=== PATIENT | female | born 1950 | race Caucasian/White ===

== ENCOUNTER → 2016-11-20 | Outpatient (CLI) | payer MEDICARE, OTHER | LOC: MW.CHRC 10:40 | PROVIDERS: ATTEND Family Medicine | DX: G89.4 Chronic pain syndrome (principal); Z53.9 Procedure and treatment not carried out, unspecified reason ==

== ENCOUNTER → 2016-11-28 | Outpatient (CLI) | payer MEDICARE, OTHER ==
[2016-11-28 10:05] LABS: CHLORIDE,CL 106 mmol/L (98-110); SODIUM,NA 140 mmol/L (136-146)
== END ==
LOC: MW.CHRC 09:13
PROVIDERS: ATTEND Family Medicine
DX: Z00.00 Encounter for general adult medical examination without abnormal findings (principal); E78.00 Pure hypercholesterolemia, unspecified; G89.4 Chronic pain syndrome; Z79.899 Other long term (current) drug therapy; K64.9 Unspecified hemorrhoids; J44.9 Chronic obstructive pulmonary disease, unspecified; M06.9 Rheumatoid arthritis, unspecified
CPT/HCPCS: 36415; 80053; 80061; 80305; G0463

== ENCOUNTER 2021-04-20 13:07 | Emergency (ER) | payer MEDICARE ==
[2021-04-20] MEDS ORDERED: Morphine 4 MG/ML Syringe IVPUSH ONE (13:08)
[2021-04-20] MEDS ORDERED: Ondansetron 4 MG/2 ML SDV IVPUSH ONE (13:08)
--- NOTE | 2021-04-20 13:11 | EDM.PDOC ---
ED HPI GENERAL MEDICAL PROBLEM - General Chief Complaint: Trauma Stated Complaint: HIP DISLOCATION EMS ARRIVAL Time Seen by Provider: 04/20/21 13:07 - History of Present Illness INITIAL COMMENTS - FREE TEXT/NARRATIVE: 71-year-old female on Eliquis for history of A. fib presents with concern for left hip dislocation. Patient has a left-sided artificial hip. It was initially replaced many years ago and ended up dislocating 5 times and then being revised 9 years ago. Since that time she has had no trouble with dislocations. Patient was working around the house turned and felt the hip slipped out causing her to fall to the ground. She has severe pain in the left hip does not radiate. She did not strike her head she did not lose consciousness she has no abdominal pain no chest pain and no other extremity pain. The pain worsens with any attempted motion of the left hip joint. She was feeling her normal self prior to the fall. She does have a history of COPD but she is not on home oxygen. General: No fever. Skin: No rash. Eyes: No vision problems. ENT: No sore throat. Neck: No neck stiffness. Respiratory: No shortness of breath. Cardiac: No chest pain. Gastrointestinal: No nausea, vomiting or abdominal pain. Urinary: No dysuria. Musculoskeletal: Per HPI Neurologic: No headache. left hip Pain Score (Numeric/FACES): 8 - Related Data Allergies Allergy/AdvReac Type Severity Reaction Status Date / Time ACEINHIBITORS Allergy Pain Verified 04/20/21 13:26 [BUDDY Inhibitors] black pepper Allergy Swelling Verified 04/20/21 13:26 meperidine HCl [From Demerol] Allergy Vomiting Verified 04/20/21 13:26 Penicillins Allergy Anaphylactic Verified 04/20/21 13:26 Shock Hot peppers Allergy Swelling Uncoded 04/20/21 13:26 Jalapeno Allergy Swelling Uncoded 04/20/21 13:26 Scallops Allergy Swelling Uncoded 04/20/21 13:26 Home Meds: Home Meds Cyanocobalamin (Vitamin B-12) [Cyanocobalamin Injection] 1,000 mcg IM .MONTHLY 12/21/13 [History] buPROPion [Wellbutrin XL] 450 mg PO DAILY 12/21/13 [History] Apixaban [Eliquis] 5 mg PO BID 04/20/21 [History] Fluticasone Propionate [Flovent HFA 110 MCG] 1 puff INH BID 04/20/21 [History] Hydrocodone/Acetaminophen [HYDROcodone-Acetaminophen 7.5-325 MG] 1 each PO Q4H PRN 04/20/21 [History] Pregabalin [Lyrica] 150 mg PO BID PRN 04/20/21 [History] Review of Systems - Review of Systems Review Of Systems: See Below ED EXAM, GENERAL - Physical Exam Exam: See Below Free Text/Narrative:: General Appearance: No acute distress, appears comfortable Skin: No rash HEENT: Normocephalic/atraumatic, sclera anicteric, mucous membranes moist Neck: Normal range of motion Chest and Lungs: Bilateral breath sounds, clear to auscultation Cardiovascular: Regular rate and rhythm, no murmur Abdomen: Soft, non-tender Back: Normal Musculoskeletal: 2+ DP pulses bilaterally left leg is shortened but not significantly rotated no focal tenderness swelling or deformities noted in the bilateral knees or ankles range of motion testing deferred pending x-ray imaging. Neurologic: Awake, alert, no obvious deficits, moving all extremities Psychiatric: Appropriate, cooperative ED TRAUMA PROCEDURES - Additional/Other Procedure(s) Other (Free Text) Procedure(s): Reduction of closed left hip dislocation: Verbal consent was obtained the patient was sedated as outlined below and the left hip was easily relocated using established Bennie technique the left lower extremity was neurovascularly intact both before and after the pr ocedure and the patient tolerated the procedure well the left knee was then placed in a knee immobilizer. Procedural sedation: Verbal consent was obtained the patient was placed on continuous telemetry monitoring as well as continuous CO2 monitoring she was given 0.5 mg/kg of ketamine and propofol which was administered by myself. This led to adequate sedation the hip was then relocated as documented above. Total sedation time was 16 minutes there were no immediate complications. Course - Vital Signs Last Recorded V/S: Last Vital Signs Temp 97.3 F 04/20/21 13:10 Pulse 68 04/20/21 13:10 Resp 18 04/20/21 13:10 BP 118/102 H 04/20/21 13:10 Pulse Ox 96 04/20/21 13:10 - Orders/Labs/Meds Orders: Active Orders 24 hr Category Date Time Status DME for Discharge [COMM] Stat Oth 04/20/21 15:30 Ordered Meds: Medications Discontinued Medications Generic Name Dose Route Start Last Admin Trade Name Erik PRN Reason Stop Dose Admin Ketamine HCl 30 mg 04/20/21 13:43 04/20/21 14:40 Ketamine 500 Mg/10 Ml Mdv IV 04/20/21 13:44 30 mg ONETIME ONE Administration Morphine Sulfate 4 mg 04/20/21 13:08 04/20/21 13:08 Morphine 4 Mg/Ml Syringe IVPUSH 04/20/21 13:09 4 mg ONETIME ONE Administration Ondansetron HCl 4 mg 04/20/21 13:08 04/20/21 13:28 Ondansetron 4 Mg/2 Ml Sdv IVPUSH 04/20/21 13:09 4 mg ONETIME ONE Administration Propofol 30 mg 04/20/21 13:43 04/20/21 14:39 Propofol 200 Mg/20 Ml Sdv IVPUSH 04/20/21 13:44 30 mg ONETIME ONE Administration Propofol 20 mg 04/20/21 14:40 04/20/21 14:42 Propofol 200 Mg/20 Ml Sdv IVPUSH 04/20/21 14:41 20 mg ONETIME ONE Administration Departure - Departure Time of Disposition: 15:29 Disposition: Home, Self-Care 01 Condition: Good Clinical Impression: Hip dislocation, left - Discharge Information *PRESCRIPTION DRUG MONITORING PROGRAM REVIEWED*: Not Applicable *COPY OF PRESCRIPTION DRUG MONITORING REPORT IN PATIENT ZAHRA: Not Applicable Instructions: Hip Dislocation Referrals: Ernst Mueller MD [Primary Care Provider] - Forms: ED Department Discharge Additional Instructions: Please wear the knee immobilizer whenever you are up and around. Please also use the walker. I called and spoke to Dr. Isaias Kidd. You could see him or any of his partners. To make an appointment please contact the [facility] Orthopedic Surgery Department at the information below [address] [place] [address] [address], [address] [phone] The following information is given to patients seen in the emergency department who are being discharged to home. This information is to outline your options for follow-up care. We provide all patients seen in our emergency department with a follow-up referral. The need for follow-up, as well as the timing and circumstances, are variable depending upon the specifics of your emergency department visit. If you don't have a primary care physician on staff, we will provide you with a referral. We always advise you to contact your personal physician following an emergency department visit to inform them of the circumstance of the visit and for follow-up with them and/or the need for any referrals to a consulting specialist. The emergency department will also refer you to a specialist when appropriate. This referral assures that you have the opportunity for follow-up care with a specialist. All of these measure are taken in an effort to provide you with optimal care, which includes your follow-up. Under all circumstances we always encourage you to contact your private physician who remains a resource for coordinating your care. When calling for follow-up care, please make the office aware that this follow-up is from your recent emergency room visit. If for any reason you are refused follow-up, please contact the [facility] Emergency Department at and asked to speak to the emergency department charge nurse. Sepsis Event Note (ED) - Focused Exam Vital Signs: Vital Signs Temp Pulse Resp BP Pulse Ox 04/20/21 13:10 97.3 F 68 18 118/102 H 96 - My Orders Last 24 Hours: My Active Orders 04/20/21 15:30 DME for Discharge [COMM] Stat - Assessment/Plan Last 24 Hours: My Active Orders 04/20/21 15:30 DME for Discharge [COMM] Stat Assessment:: 71-year-old female with likely left-sided artificial hip dislocation. X-ray pending to confirm morphine Zofran for initial symptom control. Patient may require sedation for reduction. I believe you can clinically clear the head spine chest abdomen, nonbony pelvis pelvis and other extremities. She had no symptoms prior to the fall that would suggest a nonmechanical fall. 1345: X-ray does not need confirm superior and slightly posterior left hip dislocation. Patient will need sedation for reduction will use 30 mg of ketamine and 30 mg of propofol for weight-based dose of 0.5 mg/kg. Await add itional staff for sedation. Patient comfortable at this time. Following attempted closed reduction can discuss with orthopedic surgery in [place] regarding disposition and follow-up. 1525: Reduction was without immediate complication and patients sx have resolved. She now feels well and is eager for DC. Will discuss with Orthopedic Surgery in [place] to help ensure follow-up. Patient discussed with Dr. Kidd. The patient can follow-up with him or one of his partners in [place].
[2021-04-20] MEDS ORDERED: Ketamine 500 mg/10 ML MDV IV ONE (13:43)
[2021-04-20] MEDS ORDERED: Propofol 200 MG/20 ML SDV IVPUSH ONE ×2 (13:43→14:40)
--- NOTE | 2021-04-20 13:52 | CR ---
INDICATION: Pain after injury. TECHNIQUE: Two views. IMPRESSION: Complete superior and slight posterior dislocation of the left humeral head prosthesis from the acetabular cup. No fracture is apparent. Dictated by Augustine Mccallum MD @ 04/20/2021 1:50:48 PM (Electronically Signed)
--- NOTE | 2021-04-20 15:18 | CR ---
INDICATION: Assess for reduction of dislocation. COMPARISON: Same date at 13:14. IMPRESSION: Anatomically reduced left hip prosthesis. No fracture appreciated. Dictated by Augustine Mccallum MD @ 04/20/2021 3:16:43 PM (Electronically Signed)
[2021-04-21 09:12] VITALS: BP 121/59; PULSE 65
== END 2021-04-20 15:48 | disposition home or self-care (01) ==
LOC: MW.ED 13:07
DX: T84.021A Dislocation of internal left hip prosthesis, initial encounter (principal); Z88.0 Allergy status to penicillin; Z91.018 Allergy to other foods; Z88.8 Allergy status to other drugs, medicaments and biological substances; Z79.01 Long term (current) use of anticoagulants; Z96.642 Presence of left artificial hip joint
CPT/HCPCS: 27265; 73502; 96374; 96375; 99283; J2270; J2405; J2704

== ENCOUNTER 2022-07-22 09:49 | Inpatient (IN) | payer MEDICARE ==
[2022-07-22] MEDS ORDERED: HYDROmorphone 1 MG/ML Syringe IVPUSH ONE ×2 (09:50→11:26)
[2022-07-22 10:26] LABS: CARBON DIOXIDE,CO2 29.1 mmol/L (21.0-32.0); POTASSIUM,K 4.1 mmol/L (3.5-5.1)
[2022-07-22] MEDS ORDERED: Albuterol/Ipratropium 3.0-0.5 MG/3 ML Neb Soln NEB PRN (15:59)
[2022-07-22] MEDS ORDERED: Ondansetron 4 MG/2 ML SDV IVPUSH PRN (15:59)
[2022-07-22] MEDS ORDERED: Sodium Chloride 0.9% 2.5 ML Syringe FLUSH PRN (15:59)
[2022-07-22] MEDS ORDERED: Magnesium Hydroxide 400 MG/5 ML Susp 30 ML Cup PO PRN (15:59)
[2022-07-22] MEDS ORDERED: Sodium Chloride 0.9% 10 ML Syringe FLUSH PRN (15:59)
[2022-07-22] MEDS ORDERED: HYDROmorphone 1 MG/ML Syringe IVPUSH PRN (15:59)
[2022-07-22] MEDS ORDERED: Acetaminophen 325 MG Tab PO PRN (15:59)
[2022-07-22] MEDS ORDERED: Polyethylene Glycol 3350 Powder 17 GM Packet PO PRN (15:59)
[2022-07-22] MEDS ORDERED: Acetaminophen/HYDROcodone 325-10 MG Tab PO PRN (16:03)
[2022-07-22] MEDS ORDERED: Lactated Ringers 1,000 ML IV ONE (16:30)
[2022-07-22] MEDS: atorvaSTATin 10 MG Tab PO SCH (20:39)
[2022-07-22] MEDS: Pregabalin 50 MG Cap PO SCH (20:39)
[2022-07-22] MEDS: Docusate Sodium 100 MG Cap PO SCH (20:40)
[2022-07-22] MEDS: Fluticasone/Salmeterol 250-50 MCG Inhalation Powder 14/Diskus INH SCH (20:40)
[2022-07-23 08:46] LABS: CARBON DIOXIDE,CO2 26.2 mmol/L (21.0-32.0); POTASSIUM,K 3.7 mmol/L (3.5-5.1)
[2022-07-23] MEDS: Fluticasone/Salmeterol 250-50 MCG Inhalation Powder 14/Diskus INH SCH ×2 (09:54→21:35)
[2022-07-23] MEDS: buPROPion 150 MG Tab.ER PO SCH (09:54)
[2022-07-23] MEDS: DULoxetine 30 MG Cap PO SCH (09:55)
[2022-07-23] MEDS: Docusate Sodium 100 MG Cap PO SCH ×2 (09:55→21:33)
[2022-07-23] MEDS: Pregabalin 50 MG Cap PO SCH ×2 (09:55→21:33)
[2022-07-23] MEDS: HYDROmorphone 1 MG/ML Syringe IVPUSH PRN ×2 (11:11→18:38)
[2022-07-23] MEDS: Acetaminophen/HYDROcodone 325-10 MG Tab PO PRN ×2 (13:43→21:33)
[2022-07-23] MEDS: atorvaSTATin 10 MG Tab PO SCH (21:33)
[2022-07-24] MEDS: Acetaminophen/HYDROcodone 325-10 MG Tab PO PRN ×2 (06:08→11:01)
[2022-07-24] MEDS: Docusate Sodium 100 MG Cap PO SCH ×2 (08:14→20:42)
[2022-07-24] MEDS: buPROPion 150 MG Tab.ER PO SCH (08:14)
[2022-07-24] MEDS: Pregabalin 50 MG Cap PO SCH ×2 (08:14→20:42)
[2022-07-24] MEDS: DULoxetine 30 MG Cap PO SCH (08:14)
[2022-07-24] MEDS: Apixaban 5 MG Tab PO SCH ×2 (08:19→20:42)
[2022-07-24] MEDS: HYDROmorphone 1 MG/ML Syringe IVPUSH PRN ×3 (08:19→20:46)
[2022-07-24 08:22] LABS: CARBON DIOXIDE,CO2 27.2 mmol/L (21.0-32.0); POTASSIUM,K 3.7 mmol/L (3.5-5.1)
[2022-07-24] MEDS: Fluticasone/Salmeterol 250-50 MCG Inhalation Powder 14/Diskus INH SCH ×2 (09:00→20:41)
[2022-07-24] MEDS: atorvaSTATin 10 MG Tab PO SCH (20:42)
[2022-07-25 06:13] LABS: CARBON DIOXIDE,CO2 27.4 mmol/L (21.0-32.0); POTASSIUM,K 3.9 mmol/L (3.5-5.1)
[2022-07-25] MEDS: HYDROmorphone 1 MG/ML Syringe IVPUSH PRN ×2 (06:18→14:59)
[2022-07-25] MEDS: Apixaban 5 MG Tab PO SCH ×2 (08:32→20:31)
[2022-07-25] MEDS: Docusate Sodium 100 MG Cap PO SCH ×2 (08:32→20:31)
[2022-07-25] MEDS: buPROPion 150 MG Tab.ER PO SCH (08:32)
[2022-07-25] MEDS: DULoxetine 30 MG Cap PO SCH (08:32)
[2022-07-25] MEDS: Pregabalin 50 MG Cap PO SCH ×2 (08:32→20:42)
[2022-07-25] MEDS: Fluticasone/Salmeterol 250-50 MCG Inhalation Powder 14/Diskus INH SCH ×2 (08:39→20:30)
[2022-07-25] MEDS: Acetaminophen/HYDROcodone 325-10 MG Tab PO PRN ×3 (11:12→20:32)
[2022-07-25] MEDS: atorvaSTATin 10 MG Tab PO SCH (20:31)
[2022-07-26 06:48] LABS: CARBON DIOXIDE,CO2 29.6 mmol/L (21.0-32.0)
[2022-07-26] MEDS: Acetaminophen/HYDROcodone 325-10 MG Tab PO PRN ×2 (07:26→16:44)
[2022-07-26] MEDS: DULoxetine 30 MG Cap PO SCH (09:04)
[2022-07-26] MEDS: Docusate Sodium 100 MG Cap PO SCH ×2 (09:04→20:06)
[2022-07-26] MEDS: Apixaban 5 MG Tab PO SCH ×2 (09:04→20:07)
[2022-07-26] MEDS: buPROPion 150 MG Tab.ER PO SCH (09:04)
[2022-07-26] MEDS: Pregabalin 50 MG Cap PO SCH ×2 (09:05→20:08)
[2022-07-26] MEDS: Fluticasone/Salmeterol 250-50 MCG Inhalation Powder 14/Diskus INH SCH ×2 (09:06→20:07)
[2022-07-26] MEDS: HYDROmorphone 1 MG/ML Syringe IVPUSH PRN ×2 (13:14→19:26)
[2022-07-26] MEDS: atorvaSTATin 10 MG Tab PO SCH (20:07)
[2022-07-27] MEDS: Fluticasone/Salmeterol 250-50 MCG Inhalation Powder 14/Diskus INH SCH ×2 (09:17→20:48)
[2022-07-27] MEDS: Acetaminophen/HYDROcodone 325-10 MG Tab PO PRN ×2 (09:23→14:29)
[2022-07-27] MEDS: Apixaban 5 MG Tab PO SCH ×2 (09:26→20:38)
[2022-07-27] MEDS: buPROPion 150 MG Tab.ER PO SCH (09:27)
[2022-07-27] MEDS: DULoxetine 30 MG Cap PO SCH (09:27)
[2022-07-27] MEDS: Docusate Sodium 100 MG Cap PO SCH ×2 (09:28→20:38)
[2022-07-27] MEDS: Pregabalin 50 MG Cap PO SCH ×2 (09:29→20:40)
[2022-07-27] MEDS: HYDROmorphone 1 MG/ML Syringe IVPUSH PRN ×3 (10:44→20:38)
[2022-07-27] MEDS: atorvaSTATin 10 MG Tab PO SCH (20:37)
[2022-07-28] MEDS: Apixaban 5 MG Tab PO SCH ×2 (08:40→20:42)
[2022-07-28] MEDS: DULoxetine 30 MG Cap PO SCH (08:41)
[2022-07-28] MEDS: Docusate Sodium 100 MG Cap PO SCH ×2 (08:41→20:42)
[2022-07-28] MEDS: buPROPion 150 MG Tab.ER PO SCH (08:42)
[2022-07-28] MEDS: HYDROmorphone 1 MG/ML Syringe IVPUSH PRN ×3 (08:42→20:45)
[2022-07-28] MEDS: Pregabalin 50 MG Cap PO SCH ×2 (08:46→20:42)
[2022-07-28] MEDS: Fluticasone/Salmeterol 250-50 MCG Inhalation Powder 14/Diskus INH SCH ×2 (08:46→20:43)
[2022-07-28] MEDS: Acetaminophen/HYDROcodone 325-10 MG Tab PO PRN ×2 (13:25→22:53)
[2022-07-28] MEDS: atorvaSTATin 10 MG Tab PO SCH (20:42)
[2022-07-29] MEDS: Fluticasone/Salmeterol 250-50 MCG Inhalation Powder 14/Diskus INH SCH ×2 (08:16→21:33)
[2022-07-29] MEDS: Apixaban 5 MG Tab PO SCH ×2 (08:16→20:10)
[2022-07-29] MEDS: DULoxetine 30 MG Cap PO SCH (08:17)
[2022-07-29] MEDS: buPROPion 150 MG Tab.ER PO SCH (08:17)
[2022-07-29] MEDS: Docusate Sodium 100 MG Cap PO SCH ×2 (08:17→20:11)
[2022-07-29] MEDS: Pregabalin 50 MG Cap PO SCH ×2 (08:17→20:10)
[2022-07-29] MEDS: Acetaminophen/HYDROcodone 325-10 MG Tab PO PRN (10:57)
[2022-07-29] MEDS: Acetaminophen 325 MG Tab PO SCH ×3 (16:34→23:46)
[2022-07-29] MEDS: oxyCODONE 5 MG Tab PO PRN (18:01)
[2022-07-29] MEDS: atorvaSTATin 10 MG Tab PO SCH (20:10)
[2022-07-30] MEDS: Acetaminophen 325 MG Tab PO SCH ×5 (04:02→20:15)
[2022-07-30 07:46] LABS: CARBON DIOXIDE,CO2 25.4 mmol/L (21.0-32.0); POTASSIUM,K 3.7 mmol/L (3.5-5.1)
[2022-07-30] MEDS: buPROPion 150 MG Tab.ER PO SCH (08:46)
[2022-07-30] MEDS: DULoxetine 30 MG Cap PO SCH (08:46)
[2022-07-30] MEDS: Apixaban 5 MG Tab PO SCH ×2 (08:46→20:17)
[2022-07-30] MEDS: oxyCODONE 5 MG Tab PO PRN ×3 (08:46→20:16)
[2022-07-30] MEDS: Pregabalin 50 MG Cap PO SCH ×2 (08:46→20:17)
[2022-07-30] MEDS: Docusate Sodium 100 MG Cap PO SCH ×3 (08:47→20:19)
[2022-07-30] MEDS: Fluticasone/Salmeterol 250-50 MCG Inhalation Powder 14/Diskus INH SCH ×2 (09:00→20:18)
[2022-07-30] MEDS: atorvaSTATin 10 MG Tab PO SCH (20:17)
[2022-07-31] MEDS: Acetaminophen 325 MG Tab PO SCH ×6 (04:30→20:00)
[2022-07-31] MEDS: Apixaban 5 MG Tab PO SCH ×2 (08:04→20:01)
[2022-07-31] MEDS: DULoxetine 30 MG Cap PO SCH (08:04)
[2022-07-31] MEDS: Pregabalin 50 MG Cap PO SCH ×2 (08:04→20:01)
[2022-07-31] MEDS: buPROPion 150 MG Tab.ER PO SCH (08:05)
[2022-07-31] MEDS: Docusate Sodium 100 MG Cap PO SCH ×2 (08:06→20:02)
[2022-07-31] MEDS: Fluticasone/Salmeterol 250-50 MCG Inhalation Powder 14/Diskus INH SCH ×2 (08:09→20:05)
[2022-07-31] MEDS: oxyCODONE 5 MG Tab PO PRN ×3 (10:59→20:47)
[2022-07-31] MEDS: atorvaSTATin 10 MG Tab PO SCH (20:01)
[2022-08-01] MEDS: Acetaminophen 325 MG Tab PO SCH ×6 (00:03→20:16)
[2022-08-01] MEDS: Apixaban 5 MG Tab PO SCH ×2 (08:12→20:16)
[2022-08-01] MEDS: Pregabalin 50 MG Cap PO SCH ×2 (08:13→20:17)
[2022-08-01] MEDS: buPROPion 150 MG Tab.ER PO SCH (08:13)
[2022-08-01] MEDS: Docusate Sodium 100 MG Cap PO SCH ×2 (08:14→20:20)
[2022-08-01] MEDS: DULoxetine 30 MG Cap PO SCH (08:14)
[2022-08-01] MEDS: Fluticasone/Salmeterol 250-50 MCG Inhalation Powder 14/Diskus INH SCH ×2 (08:15→20:15)
[2022-08-01] MEDS: oxyCODONE 5 MG Tab PO PRN ×3 (10:10→22:52)
[2022-08-01] MEDS: atorvaSTATin 10 MG Tab PO SCH (20:18)
[2022-08-02] MEDS: Acetaminophen 325 MG Tab PO SCH ×6 (00:03→19:57)
[2022-08-02] MEDS: oxyCODONE 5 MG Tab PO PRN ×3 (08:37→21:16)
[2022-08-02] MEDS: Pregabalin 50 MG Cap PO SCH ×2 (08:38→21:10)
[2022-08-02] MEDS: buPROPion 150 MG Tab.ER PO SCH (08:38)
[2022-08-02] MEDS: DULoxetine 30 MG Cap PO SCH (08:38)
[2022-08-02] MEDS: Apixaban 5 MG Tab PO SCH ×2 (08:39→21:09)
[2022-08-02] MEDS: Docusate Sodium 100 MG Cap PO SCH (11:19)
[2022-08-02] MEDS: Fluticasone/Salmeterol 250-50 MCG Inhalation Powder 14/Diskus INH SCH ×2 (11:50→21:17)
[2022-08-02] MEDS: atorvaSTATin 10 MG Tab PO SCH (21:10)
[2022-08-03] MEDS: Acetaminophen 325 MG Tab PO SCH ×6 (01:01→20:15)
[2022-08-03] MEDS: Docusate Sodium 100 MG Cap PO SCH ×3 (02:58→20:20)
[2022-08-03] MEDS: oxyCODONE 5 MG Tab PO PRN ×2 (03:29→16:09)
[2022-08-03] MEDS: Fluticasone/Salmeterol 250-50 MCG Inhalation Powder 14/Diskus INH SCH ×2 (08:45→20:17)
[2022-08-03] MEDS: Apixaban 5 MG Tab PO SCH ×2 (08:46→20:22)
[2022-08-03] MEDS: Pregabalin 50 MG Cap PO SCH ×2 (08:46→20:21)
[2022-08-03] MEDS: DULoxetine 30 MG Cap PO SCH (08:46)
[2022-08-03] MEDS: buPROPion 150 MG Tab.ER PO SCH (08:47)
[2022-08-03] MEDS: atorvaSTATin 10 MG Tab PO SCH (20:20)
[2022-08-04] MEDS: Acetaminophen 325 MG Tab PO SCH ×7 (00:27→19:58)
[2022-08-04 06:53] LABS: POTASSIUM,K 3.7 mmol/L (3.5-5.1)
[2022-08-04] MEDS: Docusate Sodium 100 MG Cap PO SCH ×2 (08:14→21:56)
[2022-08-04] MEDS: DULoxetine 30 MG Cap PO SCH (08:14)
[2022-08-04] MEDS: Pregabalin 50 MG Cap PO SCH ×2 (08:14→19:59)
[2022-08-04] MEDS: Apixaban 5 MG Tab PO SCH ×2 (08:14→19:59)
[2022-08-04] MEDS: buPROPion 150 MG Tab.ER PO SCH (08:14)
[2022-08-04] MEDS: Fluticasone/Salmeterol 250-50 MCG Inhalation Powder 14/Diskus INH SCH ×2 (08:15→20:02)
[2022-08-04] MEDS: oxyCODONE 5 MG Tab PO PRN ×3 (08:23→20:47)
[2022-08-04] MEDS: atorvaSTATin 10 MG Tab PO SCH (19:59)
[2022-08-05] MEDS: Acetaminophen 325 MG Tab PO SCH ×7 (01:02→23:28)
[2022-08-05] MEDS: oxyCODONE 5 MG Tab PO PRN ×4 (03:27→22:42)
[2022-08-05] MEDS: Pregabalin 50 MG Cap PO SCH ×2 (09:48→20:10)
[2022-08-05] MEDS: buPROPion 150 MG Tab.ER PO SCH (09:48)
[2022-08-05] MEDS: Fluticasone/Salmeterol 250-50 MCG Inhalation Powder 14/Diskus INH SCH ×2 (09:48→20:12)
[2022-08-05] MEDS: DULoxetine 30 MG Cap PO SCH (09:48)
[2022-08-05] MEDS: Apixaban 5 MG Tab PO SCH ×2 (09:48→20:10)
[2022-08-05] MEDS: Docusate Sodium 100 MG Cap PO SCH ×2 (09:52→20:11)
[2022-08-05 11:45] LABS: CORONAVIRUS COVID-19 NAA NEGATIVE (NEGATIVE); INFLUENZA A NAA POSITIVE (NEGATIVE); INFLUENZA B NAA NEGATIVE (NEGATIVE); RESPIRATORY SYNCYTIAL VIR NAA NEGATIVE (NEGATIVE)
[2022-08-05] MEDS: Oseltamivir 75 MG Cap PO SCH ×2 (12:19→20:10)
[2022-08-05] MEDS: atorvaSTATin 10 MG Tab PO SCH (20:10)
[2022-08-06] MEDS: Acetaminophen 325 MG Tab PO SCH ×6 (04:16→23:06)
[2022-08-06] MEDS: Docusate Sodium 100 MG Cap PO SCH ×2 (07:59→20:25)
[2022-08-06] MEDS: DULoxetine 30 MG Cap PO SCH (08:00)
[2022-08-06] MEDS: buPROPion 150 MG Tab.ER PO SCH (08:00)
[2022-08-06] MEDS: Apixaban 5 MG Tab PO SCH ×2 (08:00→20:13)
[2022-08-06] MEDS: Oseltamivir 75 MG Cap PO SCH ×2 (08:00→20:13)
[2022-08-06] MEDS: Pregabalin 50 MG Cap PO SCH ×2 (08:00→20:13)
[2022-08-06 08:55] LABS: CARBON DIOXIDE,CO2 26.5 mmol/L (21.0-32.0)
[2022-08-06] MEDS: Fluticasone/Salmeterol 250-50 MCG Inhalation Powder 14/Diskus INH SCH ×2 (09:48→20:13)
[2022-08-06] MEDS: Benzocaine/Cetylpyridinium/Menthol Lozenge MUCMEM PRN (09:48)
[2022-08-06] MEDS: oxyCODONE 5 MG Tab PO PRN (15:22)
[2022-08-06] MEDS: atorvaSTATin 10 MG Tab PO SCH (20:13)
[2022-08-06] MEDS: guaiFENesin/Dextromethorphan 100-10 MG/5 ML Soln 10 ML Cup PO PRN (20:13)
[2022-08-07] MEDS: Acetaminophen 325 MG Tab PO SCH ×5 (03:27→21:01)
[2022-08-07] MEDS: Benzocaine/Cetylpyridinium/Menthol Lozenge MUCMEM PRN (03:42)
[2022-08-07] MEDS: oxyCODONE 5 MG Tab PO PRN ×2 (09:36→15:37)
[2022-08-07] MEDS: Pregabalin 50 MG Cap PO SCH ×2 (09:36→21:01)
[2022-08-07] MEDS: guaiFENesin/Dextromethorphan 100-10 MG/5 ML Soln 10 ML Cup PO PRN ×2 (09:36→15:37)
[2022-08-07] MEDS: DULoxetine 30 MG Cap PO SCH (09:36)
[2022-08-07] MEDS: Oseltamivir 75 MG Cap PO SCH ×2 (09:36→21:02)
[2022-08-07] MEDS: buPROPion 150 MG Tab.ER PO SCH (09:36)
[2022-08-07] MEDS: Apixaban 5 MG Tab PO SCH ×2 (09:37→21:01)
[2022-08-07] MEDS: Fluticasone/Salmeterol 250-50 MCG Inhalation Powder 14/Diskus INH SCH ×2 (09:37→21:00)
[2022-08-07] MEDS: Docusate Sodium 100 MG Cap PO SCH ×2 (09:38→21:02)
[2022-08-07] MEDS: atorvaSTATin 10 MG Tab PO SCH (21:01)
[2022-08-08] MEDS: Acetaminophen 325 MG Tab PO SCH ×3 (00:52→08:34)
[2022-08-08] MEDS: Benzocaine/Cetylpyridinium/Menthol Lozenge MUCMEM PRN ×2 (02:17→20:13)
[2022-08-08] MEDS: guaiFENesin/Dextromethorphan 100-10 MG/5 ML Soln 10 ML Cup PO PRN ×2 (02:17→20:13)
[2022-08-08] MEDS: DULoxetine 30 MG Cap PO SCH (08:34)
[2022-08-08] MEDS: Pregabalin 50 MG Cap PO SCH ×2 (08:34→20:03)
[2022-08-08] MEDS: Docusate Sodium 100 MG Cap PO SCH ×2 (08:34→21:06)
[2022-08-08] MEDS: Fluticasone/Salmeterol 250-50 MCG Inhalation Powder 14/Diskus INH SCH ×2 (08:34→21:09)
[2022-08-08] MEDS: Apixaban 5 MG Tab PO SCH ×2 (08:34→20:03)
[2022-08-08] MEDS: buPROPion 150 MG Tab.ER PO SCH (08:34)
[2022-08-08] MEDS ORDERED: Acetaminophen 500 MG Tab PO PRN (09:53)
[2022-08-08] MEDS: Oseltamivir 75 MG Cap PO SCH ×2 (10:26→20:03)
[2022-08-08] MEDS: oxyCODONE 5 MG Tab PO PRN ×2 (13:54→20:02)
[2022-08-08] MEDS: atorvaSTATin 10 MG Tab PO SCH (20:03)
[2022-08-08] MEDS: Acetaminophen 500 MG Tab PO SCH (20:04)
[2022-08-09] MEDS: Fluticasone/Salmeterol 250-50 MCG Inhalation Powder 14/Diskus INH SCH ×2 (09:37→20:29)
[2022-08-09] MEDS: buPROPion 150 MG Tab.ER PO SCH (09:38)
[2022-08-09] MEDS: Acetaminophen 500 MG Tab PO SCH ×2 (09:38→20:30)
[2022-08-09] MEDS: DULoxetine 30 MG Cap PO SCH (09:39)
[2022-08-09] MEDS: Apixaban 5 MG Tab PO SCH ×2 (09:39→20:30)
[2022-08-09] MEDS: Pregabalin 50 MG Cap PO SCH ×2 (09:39→20:30)
[2022-08-09] MEDS: Oseltamivir 75 MG Cap PO SCH ×2 (09:39→20:30)
[2022-08-09] MEDS: Docusate Sodium 100 MG Cap PO SCH ×2 (09:40→20:58)
[2022-08-09] MEDS: guaiFENesin/Dextromethorphan 100-10 MG/5 ML Soln 10 ML Cup PO PRN ×2 (12:50→20:29)
[2022-08-09] MEDS: oxyCODONE 5 MG Tab PO PRN (20:29)
[2022-08-09] MEDS: Benzocaine/Cetylpyridinium/Menthol Lozenge MUCMEM PRN (20:30)
[2022-08-09] MEDS: atorvaSTATin 10 MG Tab PO SCH (20:30)
[2022-08-10] MEDS: buPROPion 150 MG Tab.ER PO SCH (09:41)
[2022-08-10] MEDS: DULoxetine 30 MG Cap PO SCH (09:41)
[2022-08-10] MEDS: guaiFENesin/Dextromethorphan 100-10 MG/5 ML Soln 10 ML Cup PO PRN ×2 (09:41→21:07)
[2022-08-10] MEDS: Oseltamivir 75 MG Cap PO SCH (09:41)
[2022-08-10] MEDS: Apixaban 5 MG Tab PO SCH ×2 (09:41→21:07)
[2022-08-10] MEDS: Docusate Sodium 100 MG Cap PO SCH ×2 (09:41→21:08)
[2022-08-10] MEDS: Pregabalin 50 MG Cap PO SCH ×2 (09:41→21:07)
[2022-08-10] MEDS: Fluticasone/Salmeterol 250-50 MCG Inhalation Powder 14/Diskus INH SCH ×2 (09:42→21:08)
[2022-08-10] MEDS: Acetaminophen 500 MG Tab PO SCH ×2 (09:44→21:07)
[2022-08-10] MEDS: Benzocaine/Cetylpyridinium/Menthol Lozenge MUCMEM PRN (21:06)
[2022-08-10] MEDS: atorvaSTATin 10 MG Tab PO SCH (21:07)
[2022-08-10] MEDS: oxyCODONE 5 MG Tab PO PRN (21:07)
[2022-08-11] MEDS: Fluticasone/Salmeterol 250-50 MCG Inhalation Powder 14/Diskus INH SCH ×2 (09:16→21:15)
[2022-08-11] MEDS: DULoxetine 30 MG Cap PO SCH (09:24)
[2022-08-11] MEDS: Acetaminophen 500 MG Tab PO SCH ×2 (09:24→21:15)
[2022-08-11] MEDS: buPROPion 150 MG Tab.ER PO SCH (09:25)
[2022-08-11] MEDS: Docusate Sodium 100 MG Cap PO SCH ×2 (09:25→22:46)
[2022-08-11] MEDS: Apixaban 5 MG Tab PO SCH ×2 (09:25→21:15)
[2022-08-11] MEDS: Pregabalin 50 MG Cap PO SCH ×2 (09:25→21:15)
[2022-08-11] MEDS: oxyCODONE 5 MG Tab PO PRN (16:27)
[2022-08-11] MEDS: guaiFENesin/Dextromethorphan 100-10 MG/5 ML Soln 10 ML Cup PO PRN (21:15)
[2022-08-11] MEDS: Benzocaine/Cetylpyridinium/Menthol Lozenge MUCMEM PRN (21:15)
[2022-08-11] MEDS: atorvaSTATin 10 MG Tab PO SCH (21:15)
[2022-08-12] MEDS: DULoxetine 30 MG Cap PO SCH (08:57)
[2022-08-12] MEDS: Docusate Sodium 100 MG Cap PO SCH ×2 (08:57→20:29)
[2022-08-12] MEDS: Pregabalin 50 MG Cap PO SCH ×2 (08:58→20:30)
[2022-08-12] MEDS: buPROPion 150 MG Tab.ER PO SCH (08:58)
[2022-08-12] MEDS: Apixaban 5 MG Tab PO SCH ×2 (08:58→20:29)
[2022-08-12] MEDS: Acetaminophen 500 MG Tab PO SCH ×2 (08:58→20:29)
[2022-08-12] MEDS: Fluticasone/Salmeterol 250-50 MCG Inhalation Powder 14/Diskus INH SCH ×2 (08:59→20:30)
[2022-08-12] MEDS: atorvaSTATin 10 MG Tab PO SCH (20:29)
[2022-08-13] MEDS: Apixaban 5 MG Tab PO SCH ×2 (08:41→21:19)
[2022-08-13] MEDS: Acetaminophen 500 MG Tab PO SCH ×2 (08:41→21:19)
[2022-08-13] MEDS: DULoxetine 30 MG Cap PO SCH (08:41)
[2022-08-13] MEDS: Pregabalin 50 MG Cap PO SCH ×2 (08:42→21:19)
[2022-08-13] MEDS: buPROPion 150 MG Tab.ER PO SCH (08:42)
[2022-08-13] MEDS: Docusate Sodium 100 MG Cap PO SCH ×2 (08:42→21:19)
[2022-08-13] MEDS: Fluticasone/Salmeterol 250-50 MCG Inhalation Powder 14/Diskus INH SCH ×2 (08:43→21:20)
[2022-08-13] MEDS: atorvaSTATin 10 MG Tab PO SCH (21:19)
[2022-08-13] MEDS: oxyCODONE 5 MG Tab PO PRN (21:26)
[2022-08-14 07:51] VITALS: BP 117/63; PULSE 74
[2022-08-14] MEDS: Pregabalin 50 MG Cap PO SCH (08:00)
[2022-08-14] MEDS: buPROPion 150 MG Tab.ER PO SCH (08:00)
[2022-08-14] MEDS: Acetaminophen 500 MG Tab PO SCH (08:00)
[2022-08-14] MEDS: Fluticasone/Salmeterol 250-50 MCG Inhalation Powder 14/Diskus INH SCH (08:01)
[2022-08-14] MEDS: Docusate Sodium 100 MG Cap PO SCH (08:01)
[2022-08-14] MEDS: DULoxetine 30 MG Cap PO SCH (08:01)
[2022-08-14] MEDS: Apixaban 5 MG Tab PO SCH (08:01)
== END 2022-08-14 08:55 | DRG 536 ==
LOC: MW.ED 09:49 → MW.MS 14:01
PROVIDERS: ADMIT Internal Medicine; ATTEND Internal Medicine
DX: S72.002A Fracture of unspecified part of neck of left femur, initial encounter for closed fracture (principal); S72.92XA Unspecified fracture of left femur, initial encounter for closed fracture; M97.02XA Periprosthetic fracture around internal prosthetic left hip joint, initial encounter; S70.12XA Contusion of left thigh, initial encounter; J10.1 Influenza due to other identified influenza virus with other respiratory manifestations; I48.0 Paroxysmal atrial fibrillation; G89.29 Other chronic pain; F11.90 Opioid use, unspecified, uncomplicated; Z20.822 Contact with and (suspected) exposure to COVID-19; J44.9 Chronic obstructive pulmonary disease, unspecified; Z88.0 Allergy status to penicillin; I48.91 Unspecified atrial fibrillation; Z88.8 Allergy status to other drugs, medicaments and biological substances; Z79.899 Other long term (current) drug therapy; I45.10 Unspecified right bundle-branch block; M06.9 Rheumatoid arthritis, unspecified; Z79.01 Long term (current) use of anticoagulants; Z79.891 Long term (current) use of opiate analgesic; Z96.642 Presence of left artificial hip joint; W19.XXXA Unspecified fall, initial encounter
CPT/HCPCS: 0241U; 36415; 70450; 71045; 72125; 72131; 72192; 73110; 73502; 73552; 80048; 80053; 83735; 84100; 84484; 85025; 93005; 94640; 96374; 96376; 97110; 97163; 97530; 99285; 93010; 99221; 99231; 99232; 99238; 99284; A9270-GY; J1170; J7120; J7620-GY; U0002

== ENCOUNTER 2022-09-23 10:00 | Emergency (ER) | payer MEDICARE ==
[2022-09-23 11:10] LABS: BLOOD UREA NITROGEN,BUN 12 mg/dL (7.0-18.0); CARBON DIOXIDE,CO2 27.5 mmol/L (21.0-32.0); CHLORIDE,CL 105 mmol/L (98-107); GLUCOSE RANDOM 75 mg/dL (74-106); POTASSIUM,K 4.3 mmol/L (3.5-5.1); SODIUM,NA 140 mmol/L (136-145)
[2022-09-23] MEDS ORDERED: Morphine 4 MG/ML Syringe IVPUSH ONE (11:11)
[2022-09-23] MEDS ORDERED: Ondansetron 4 MG/2 ML SDV IVPUSH ONE (11:11)
[2022-09-23 11:15] LABS: CORONAVIRUS COVID-19 NAA NEGATIVE (NEGATIVE); INFLUENZA A NAA NEGATIVE (NEGATIVE); INFLUENZA B NAA NEGATIVE (NEGATIVE)
[2022-09-23 11:16] LABS: ESTIMATED GFR 94 mL/min (>60)
[2022-09-23] MEDS ORDERED: Lidocaine 1% 5 ML VIAL ONE (13:37)
[2022-09-23] MEDS ORDERED: Propofol 200 MG/20 ML SDV ONE (13:37)
[2022-09-23 16:14] VITALS: BP 117/65; PULSE 70
== END 2022-09-23 16:13 | disposition home or self-care (01) ==
LOC: MW.ED 10:00
DX: S73.005A Unspecified dislocation of left hip, initial encounter (principal); I48.91 Unspecified atrial fibrillation; J44.9 Chronic obstructive pulmonary disease, unspecified; Z79.01 Long term (current) use of anticoagulants; Z88.0 Allergy status to penicillin; Z91.048 Other nonmedicinal substance allergy status; Z88.5 Allergy status to narcotic agent; Z79.899 Other long term (current) drug therapy; Z20.822 Contact with and (suspected) exposure to COVID-19
CPT/HCPCS: 0240U; 27250; 36415; 73501; 73502; 80053; 85025; 96374; 96375; 99284; J2270; J2405; J2704; J3490

== ENCOUNTER 2022-10-12 11:35 | Emergency (ER) | payer MEDICARE ==
[2022-10-12] MEDS ORDERED: HYDROmorphone 1 MG/ML Syringe IVPUSH ONE (11:57)
[2022-10-12] MEDS ORDERED: Ondansetron 4 MG/2 ML SDV IVPUSH ONE (11:57)
[2022-10-12 14:28] VITALS: BP 113/58; PULSE 69
== END 2022-10-12 15:25 | disposition home or self-care (01) ==
LOC: MW.ED 11:35
DX: S70.02XA Contusion of left hip, initial encounter (principal); I48.91 Unspecified atrial fibrillation; J44.9 Chronic obstructive pulmonary disease, unspecified; Z96.642 Presence of left artificial hip joint; Z88.8 Allergy status to other drugs, medicaments and biological substances; Z88.5 Allergy status to narcotic agent; Z88.0 Allergy status to penicillin; Z91.018 Allergy to other foods; Z79.01 Long term (current) use of anticoagulants; Z79.899 Other long term (current) drug therapy
CPT/HCPCS: 72192; 73503; 96374; 96375; 99284; J1170; J2405

== ENCOUNTER 2022-10-15 10:06 | Emergency (ER) | payer MEDICARE ==
[2022-10-15] MEDS ORDERED: Propofol 200 MG/20 ML SDV IVPUSH ONE (11:00)
[2022-10-15] MEDS ORDERED: Sodium Chloride 0.9% 1,000 ML IV ONE (11:10)
[2022-10-15 11:22] LABS: CORONAVIRUS COVID-19 NAA NEGATIVE (NEGATIVE); INFLUENZA A NAA NEGATIVE (NEGATIVE); INFLUENZA B NAA NEGATIVE (NEGATIVE)
[2022-10-15 19:52] VITALS: BP 156/87; PULSE 87
== END 2022-10-15 13:52 | disposition home or self-care (01) ==
LOC: MW.ED 10:06
DX: T84.021A Dislocation of internal left hip prosthesis, initial encounter (principal); J44.9 Chronic obstructive pulmonary disease, unspecified; I48.91 Unspecified atrial fibrillation; Z79.01 Long term (current) use of anticoagulants; Z88.5 Allergy status to narcotic agent; Z88.8 Allergy status to other drugs, medicaments and biological substances; Z88.0 Allergy status to penicillin; Z91.048 Other nonmedicinal substance allergy status; Z79.899 Other long term (current) drug therapy; Z20.822 Contact with and (suspected) exposure to COVID-19
CPT/HCPCS: 0240U; 27250; 73501; 73502; 93005; 96360; 96361; 99284; J2704; J7030; 93010

== ENCOUNTER 2023-01-07 13:24 | Emergency (ER) | payer MEDICARE ==
[2023-01-07] MEDS ORDERED: Sodium Chloride 0.9% 1,000 ML IV STA (14:16)
[2023-01-07] MEDS ORDERED: Propofol 200 MG/20 ML SDV IVPUSH STA (14:16)
[2023-01-07 19:22] VITALS: BP 117/78; PULSE 67
== END 2023-01-07 16:40 ==
LOC: MW.ED 13:24
DX: T84.020A Dislocation of internal right hip prosthesis, initial encounter (principal); I48.91 Unspecified atrial fibrillation; J44.9 Chronic obstructive pulmonary disease, unspecified; Z88.5 Allergy status to narcotic agent; Z88.0 Allergy status to penicillin; Z91.048 Other nonmedicinal substance allergy status; Z91.018 Allergy to other foods; Z79.01 Long term (current) use of anticoagulants
CPT/HCPCS: 27266; 73502; 96360; 99152; 99285; J2704; J7030; 99283

== ENCOUNTER 2023-01-07 19:23 | Emergency (ER) | payer MEDICARE | END 2023-01-07 20:30 | disposition left against medical advice (07) | LOC: MW.ED 19:23 | DX: Z53.21 Procedure and treatment not carried out due to patient leaving prior to being seen by health care provider (principal) ==

== ENCOUNTER 2023-02-09 21:06 | Emergency (ER) | payer MEDICARE ==
[2023-02-09] MEDS ORDERED: Sodium Chloride 0.9% 1,000 ML IV ONE (22:00)
[2023-02-09] MEDS ORDERED: Propofol 200 MG/20 ML SDV IVPUSH ONE (22:00)
[2023-02-09 23:58] VITALS: BP 118/61; PULSE 72
== END 2023-02-09 23:57 | disposition home or self-care (01) ==
LOC: MW.ED 21:06
DX: T84.021A Dislocation of internal left hip prosthesis, initial encounter (principal); I48.91 Unspecified atrial fibrillation; J44.9 Chronic obstructive pulmonary disease, unspecified; Z79.899 Other long term (current) drug therapy; Z88.8 Allergy status to other drugs, medicaments and biological substances; Z88.5 Allergy status to narcotic agent; Z88.0 Allergy status to penicillin; Z91.018 Allergy to other foods; Z96.642 Presence of left artificial hip joint
CPT/HCPCS: 27265; 29505; 73501; 73502; 96360; 99284; J2704; J7030; 99152

== ENCOUNTER 2023-03-01 09:55 | Emergency (ER) | payer MEDICARE ==
[2023-03-01] MEDS ORDERED: Sodium Chloride 0.9% 10 ML Syringe FLUSH PRN (10:03)
[2023-03-01] MEDS ORDERED: Sodium Chloride 0.9% 2.5 ML Syringe FLUSH PRN (10:03)
[2023-03-01 10:23] LABS: BASOPHILS PERCENT AUTO 0.2 % (0.0-1.5); EOSINOPHILS ABSOLUTE AUTO 0.2 K/uL (0.0-0.7); EOSINOPHILS PERCENT AUTO 3.6 % (0.0-7.0); HEMATOCRIT 33.4 % (36.0-46.0); HEMOGLOBIN 10.1 g/dL (12.0-16.0); LYMPHOCYTES ABSOLUTE AUTO 1.1 K/uL (0.6-2.4); LYMPHOCYTES PERCENT AUTO 23.9 % (16.0-40.0); MEAN CORPUSCULAR HEMOGLOBIN 25.5 pg (27.0-32.0); MEAN CORPUSCULAR HGB CONC 30.2 g/dL (31.0-37.0); MEAN CORPUSCULAR VOLUME 84.3 fL (80.0-98.0); MONOCYTES ABSOLUTE AUTO 0.3 K/uL (0.0-0.8); NEUTROPHILS ABSOLUTE AUTO 3.1 K/uL (1.4-5.7); NEUTROPHILS PERCENT AUTO 65.3 % (48.0-80.0); NRBC ABSOLUTE 0 K/uL; PLATELET COUNT,PLT 434 K/uL (150-400); RED BLOOD CELL COUNT 3.96 M/uL (4.30-5.90); WHITE BLOOD CELL COUNT,WBC 4.69 K/uL (4.0-11.0)
[2023-03-01] MEDS ORDERED: Meclizine 25 MG Tab PO STA (10:45)
[2023-03-01] MEDS ORDERED: Sodium Chloride 0.9% 1,000 ML IV STA (10:45)
[2023-03-01 10:46] LABS: A/G RATIO 0.8 (0.9-1.6); ALBUMIN 2.9 g/dL (3.4-5.0); BILIRUBIN TOTAL 0.4 mg/dL (0.2-1.0); CALCIUM 8.4 mg/dL (8.5-10.1); CARBON DIOXIDE,CO2 26.6 mmol/L (21.0-32.0); CREATININE 0.5 mg/dL (0.6-1.0); EST CRCL DRUG DOSING (CG) 87.48 mL/min; MAGNESIUM 1.9 mg/dL (1.8-2.4); POTASSIUM,K 3.9 mmol/L (3.5-5.1); PROTEIN TOTAL,TP 6.5 g/dL (6.4-8.2)
[2023-03-01 10:51] LABS: APPEARANCE,URINE CLEAR; BILIRUBIN,URINE NEGATIVE (NEGATIVE); COLOR,URINE YELLOW; GLUCOSE,URINE NEGATIVE (NEGATIVE); KETONES,URINE NEGATIVE (NEGATIVE); LEUKOCYTE ESTERASE,URINE SMALL (NEGATIVE); NITRITE,URINE NEGATIVE (NEGATIVE); OCCULT BLOOD,URINE NEGATIVE (NEGATIVE); PROTEIN,URINE NEGATIVE (NEGATIVE); UROBILINOGEN,URINE 0.2 EU/dL (<2.0)
[2023-03-01 10:58] LABS: BACTERIA,URINE FEW (NEGATIVE); EPITHELIAL CELLS,URINE FEW (NONE-FEW); MUCUS,URINE LIGHT (NONE-MOD); RBC,URINE 0-1 (0-2/HPF); WBC,URINE 0-2 (0-5/HPF)
[2023-03-01 11:12] LABS: INR 1.01 (0.86-1.11)
[2023-03-01] MEDS ORDERED: Cephalexin 500 MG Cap PO STA (11:33)
[2023-03-01 12:32] VITALS: BP 147/65; PULSE 67
== END 2023-03-01 12:32 | disposition home or self-care (01) ==
LOC: MW.ED 09:55
DX: N30.00 Acute cystitis without hematuria (principal); R42 Dizziness and giddiness; I48.91 Unspecified atrial fibrillation; I10 Essential (primary) hypertension; E03.9 Hypothyroidism, unspecified; E78.5 Hyperlipidemia, unspecified; J44.9 Chronic obstructive pulmonary disease, unspecified; M06.9 Rheumatoid arthritis, unspecified; F17.210 Nicotine dependence, cigarettes, uncomplicated; Z79.01 Long term (current) use of anticoagulants; Z88.8 Allergy status to other drugs, medicaments and biological substances; Z88.0 Allergy status to penicillin; Z91.018 Allergy to other foods; Z79.899 Other long term (current) drug therapy; Z79.51 Long term (current) use of inhaled steroids
CPT/HCPCS: 36415; 80053; 81001; 83735; 84484; 85025; 85610; 87086; 93005; 96360; 99284; A9270; J3490; J7030; 93010; 99283

== ENCOUNTER 2023-03-06 12:30 | Emergency (ER) | payer MEDICARE ==
[2023-03-06] MEDS ORDERED: Sodium Chloride 0.9% 10 ML Syringe FLUSH PRN (12:46)
[2023-03-06] MEDS ORDERED: Sodium Chloride 0.9% 2.5 ML Syringe FLUSH PRN (12:46)
[2023-03-06] MEDS ORDERED: Sodium Chloride 0.9% 1,000 ML IV ONE (12:47)
[2023-03-06] MEDS ORDERED: Propofol 200 MG/20 ML SDV IVPUSH ONE (13:06)
[2023-03-06 15:51] VITALS: BP 137/68; PULSE 64
== END 2023-03-06 15:51 | disposition home or self-care (01) ==
LOC: MW.ED 12:30
DX: T84.021A Dislocation of internal left hip prosthesis, initial encounter (principal); I48.91 Unspecified atrial fibrillation; J44.9 Chronic obstructive pulmonary disease, unspecified; I10 Essential (primary) hypertension; Z79.01 Long term (current) use of anticoagulants; Z91.048 Other nonmedicinal substance allergy status; Z88.0 Allergy status to penicillin; Z88.5 Allergy status to narcotic agent
CPT/HCPCS: 27265; 73502; 99283; J2704; J3490; J7030; 01200; 27257; 99100; 99284

== ENCOUNTER 2023-03-10 07:42 | Emergency (ER) | payer MEDICARE ==
[2023-03-10] MEDS ORDERED: Lactated Ringers 1,000 ML IV SCH (07:45)
[2023-03-10] MEDS ORDERED: Norepinephrine Bit/D5W Premix 0 ML ONE (08:05)
[2023-03-10] MEDS: Propofol 200 MG/20 ML SDV IVPUSH ONE ×2 (08:10→08:21)
[2023-03-10] MEDS ORDERED: Propofol 200 MG/20 ML SDV ONE (08:10)
[2023-03-10] MEDS ORDERED: Sodium Chloride 0.9% 1,000 ML IV STA (08:24)
[2023-03-10 09:55] VITALS: BP 135/59; PULSE 66
== END 2023-03-10 09:50 | disposition home or self-care (01) ==
LOC: MW.ED 07:42
DX: T84.021A Dislocation of internal left hip prosthesis, initial encounter (principal); I48.91 Unspecified atrial fibrillation; J44.9 Chronic obstructive pulmonary disease, unspecified; Z88.6 Allergy status to analgesic agent; Z88.8 Allergy status to other drugs, medicaments and biological substances; Z88.0 Allergy status to penicillin; Z91.018 Allergy to other foods; Z79.01 Long term (current) use of anticoagulants; Z79.899 Other long term (current) drug therapy; X58.XXXA Exposure to other specified factors, initial encounter
CPT/HCPCS: 27265; 73501; 73502; 96360; 96361; 99283; J2704; J7030; 99284

== ENCOUNTER 2023-04-19 03:04 | Emergency (ER) | payer MEDICARE ==
[2023-04-19] MEDS ORDERED: Propofol 200 MG/20 ML SDV IVPUSH ONE (05:53)
[2023-04-19 06:59] VITALS: BP 139/78; PULSE 66
== END 2023-04-19 06:50 | disposition home or self-care (01) ==
LOC: MW.ED 03:04
DX: T84.021A Dislocation of internal left hip prosthesis, initial encounter (principal); J44.9 Chronic obstructive pulmonary disease, unspecified; I48.91 Unspecified atrial fibrillation; Z88.0 Allergy status to penicillin; Z88.8 Allergy status to other drugs, medicaments and biological substances; Z79.01 Long term (current) use of anticoagulants; Z79.899 Other long term (current) drug therapy; W18.40XA Slipping, tripping and stumbling without falling, unspecified, initial encounter
CPT/HCPCS: 27265; 73502; 93971; 99284; J2704; 27250; 99152